=== PATIENT | female | born 1965 | race Caucasian/White ===

== ENCOUNTER → 2017-11-15 | Outpatient (CLI) | payer OTHER ==
[2017-11-18 15:07] LABS: HPV 16 Negative (Negative); HPV 18 Negative (Negative); HPV OTHER HR TYPES Negative (Negative)
== END ==
LOC: LAB 10:02 → LAB SHORT 10:02
PROVIDERS: Obstetrics & Gynecology
DX: Z01.419 Encounter for gynecological examination (general) (routine) without abnormal findings (principal)
CPT/HCPCS: 87624; G0123

== ENCOUNTER → 2019-10-31 | Outpatient (CLI) | payer OTHER ==
[2019-10-31 12:35] LABS: BASOPHILS ABSOLUTE AUTO 0.02 K/mm3 (0.00-0.23); BASOPHILS PERCENT AUTO 0 % (0-2); EOSINOPHILS ABSOLUTE AUTO 0.09 K/mm3 (0.00-0.68); EOSINOPHILS PERCENT AUTO 2 % (0-6); Hematocrit 40.3 % (33.0-51.0); Hemoglobin 14.6 g/dL (11.5-16.0); IMMATURE GRAN ABSOLUTE AUTO 0.02 K/mm3 (0.00-0.10); IMMATURE GRAN PERCENT AUTO 0 % (0-1); LYMPHOCYTES ABSOLUTE AUTO 1.02 K/mm3 (0.84-5.20); LYMPHOCYTES PERCENT AUTO 18 % (21-46); MONOCYTES PERCENT AUTO 7 % (4-13); Mean Corpuscular HGB 39.7 pg (26.0-34.0); Mean Corpuscular HGB Conc 36.2 g/dL (31.5-36.5); Mean Corpuscular Volume 110 fL (80-100); NEUTROPHILS ABSOLUTE AUTO 4.16 K/mm3 (1.96-9.15); NEUTROPHILS PERCENT AUTO 73 % (41-73); Platelet Count 171 K/mm3 (150-400); RDW Coefficient Variation 12.8 % (11.7-14.2); RDW Standard Deviation 51.1 fL (35.1-46.3); Red Blood Cell Count 3.68 M/mm3 (3.80-5.20); White Blood Cell Count 5.71 K/mm3 (4.00-11.30)
[2019-10-31 12:38] LABS: Anion Gap 9 mmol/L (6-16); Blood Urea Nitrogen 9 mg/dL (8-24); Bun/Creatinine Ratio 12.7 (12.0-20.0); CO2, Blood 28 mmol/L (21-32); Calcium, Blood 9.6 mg/dL (8.5-10.1); Chloride, Blood 99 mmol/L (98-108); Creatinine, Blood 0.71 mg/dL (0.40-1.00); Glomerular Filtration Rate >60 (60-); Glucose, Blood 113 mg/dL (70-99); Potassium, Blood 4.3 mmol/L (3.5-5.5); Sodium, Blood 136 mmol/L (136-145)
== END | disposition home or self-care (01) ==
LOC: LAB SHORT 12:25 → LAB EV 12:25
PROVIDERS: Physician Assistant
DX: D53.9 Nutritional anemia, unspecified (principal); I10 Essential (primary) hypertension
CPT/HCPCS: 80048; 82607; 82746; 84443; 84484; 85025

== ENCOUNTER → 2019-11-20 | Outpatient (CLI) | payer OTHER ==
[2019-11-20 18:21] LABS: Alanine Aminotransfer (ALT/SGP 57 U/L (12-78); Albumin, Blood 3.3 g/dL (3.4-5.0); Albumin/Globulin Ratio 0.8 (0.8-1.8); Alk Phos 102 U/L (50-136); Anion Gap 8 mmol/L (6-16); Aspartate Aminotrans (AST/SGOT 96 U/L (12-37); Bilirubin, Total 0.4 mg/dL (0.1-1.0); Blood Urea Nitrogen 7 mg/dL (8-24); CHOL/HDL RATIO 1.9; CO2, Blood 26 mmol/L (21-32); Calcium, Blood 8.5 mg/dL (8.5-10.1); Chloride, Blood 110 mmol/L (98-108); Cholesterol 182 mg/dL (50-200); Creatinine, Blood 0.44 mg/dL (0.40-1.00); Globulin, Blood 3.9 g/dL (2.2-4.0); Glomerular Filtration Rate >60 (60-); Glucose, Blood 81 mg/dL (70-99); HDL Cholesterol 98 mg/dL (>39); LDL/HDL RATIO 0.6; Low Density Lipoprotein Chol 63 mg/dL (0-110); Potassium, Blood 3.9 mmol/L (3.5-5.5); Sodium, Blood 144 mmol/L (136-145); Total Protein, Blood 7.2 g/dL (6.4-8.2); Triglycerides 105 mg/dL (30-160); Very Low Density Lipoprot Chol 21 mg/dL (6-32)
== END | disposition home or self-care (01) ==
LOC: LAB SHORT 16:02 → LAB 16:02
PROVIDERS: Nurse Practitioner Family
DX: Z00.00 Encounter for general adult medical examination without abnormal findings (principal)
CPT/HCPCS: 80053; 80061; 84443

== ENCOUNTER 2020-01-22 11:43 | Emergency (ER) | payer OTHER ==
[~2020-01-22] VITALS: Ht 162.6 cm; Wt 79.4 kg
[2020-01-22 12:54] LABS: BASOPHILS ABSOLUTE AUTO 0.02 K/mm3 (0.00-0.23); BASOPHILS PERCENT AUTO 0 % (0-2); EOSINOPHILS ABSOLUTE AUTO 0.13 K/mm3 (0.00-0.68); EOSINOPHILS PERCENT AUTO 2 % (0-6); Hematocrit 51.1 % (33.0-51.0); Hemoglobin 17.2 g/dL (11.5-16.0); IMMATURE GRAN ABSOLUTE AUTO 0.02 K/mm3 (0.00-0.10); IMMATURE GRAN PERCENT AUTO 0 % (0-1); LYMPHOCYTES ABSOLUTE AUTO 1.44 K/mm3 (0.84-5.20); LYMPHOCYTES PERCENT AUTO 23 % (21-46); MONOCYTES ABSOLUTE AUTO 0.34 K/mm3 (0.16-1.47); MONOCYTES PERCENT AUTO 5 % (4-13); Mean Corpuscular HGB 39.9 pg (26.0-34.0); Mean Corpuscular HGB Conc 33.7 g/dL (31.5-36.5); Mean Corpuscular Volume 119 fL (80-100); Mean Platelet Volume 9.5 fL (9.1-12.4); NEUTROPHILS ABSOLUTE AUTO 4.42 K/mm3 (1.96-9.15); NEUTROPHILS PERCENT AUTO 70 % (41-73); Platelet Count 123 K/mm3 (150-400); RDW Coefficient Variation 14.5 % (11.7-14.2); RDW Standard Deviation 64.2 fL (35.1-46.3); Red Blood Cell Count 4.31 M/mm3 (3.80-5.20); White Blood Cell Count 6.37 K/mm3 (4.00-11.30)
[2020-01-22] MEDS ORDERED: Prozac20 MG PO (13:02)
[2020-01-22] MEDS ORDERED: AMLO5 PO (13:02)
[2020-01-22] MEDS ORDERED: LISI5 PO (13:02)
[2020-01-22] MEDS ORDERED: Vitamin B-121000 MCG PO (13:03)
[2020-01-22] MEDS ORDERED: TRAZ50 PO (13:03)
[2020-01-22 13:04] LABS: International Normalized Ratio 1.03
[2020-01-22 13:13] LABS: Alanine Aminotransfer (ALT/SGP 19 U/L (12-78); Albumin, Blood 3.3 g/dL (3.4-5.0); Albumin/Globulin Ratio 0.8 (0.8-1.8); Alk Phos 169 U/L (50-136); Anion Gap 7 mmol/L (6-16); Aspartate Aminotrans (AST/SGOT 21 U/L (12-37); Bilirubin, Total 0.6 mg/dL (0.1-1.0); Blood Urea Nitrogen 8 mg/dL (8-24); CO2, Blood 27 mmol/L (21-32); Calcium, Blood 8.9 mg/dL (8.5-10.1); Chloride, Blood 106 mmol/L (98-108); Creatinine, Blood 0.57 mg/dL (0.40-1.00); Globulin, Blood 4.2 g/dL (2.2-4.0); Glomerular Filtration Rate >60 (60-); Glucose, Blood 94 mg/dL (70-99); Potassium, Blood 4.2 mmol/L (3.5-5.5); Sodium, Blood 140 mmol/L (136-145); Total Protein, Blood 7.5 g/dL (6.4-8.2)
[2020-01-22] MEDS ORDERED: XARELTO20 MG PO (13:42)
== END 2020-01-22 14:12 | disposition home or self-care (01) ==
LOC: ER 11:43
PROVIDERS: Emergency Medicine
DX: I82.411 Acute embolism and thrombosis of right femoral vein (principal); I82.431 Acute embolism and thrombosis of right popliteal vein; I82.441 Acute embolism and thrombosis of right tibial vein; I82.451 Acute embolism and thrombosis of right peroneal vein; I10 Essential (primary) hypertension; F41.9 Anxiety disorder, unspecified; F17.210 Nicotine dependence, cigarettes, uncomplicated; Z79.899 Other long term (current) drug therapy
CPT/HCPCS: 80053; 85025; 85610; 99283

== ENCOUNTER → 2020-10-20 | Outpatient (CLI) | payer OTHER ==
[~2020-10-20] MED LIST: AMLO5 PO; LISI5 PO; Prozac20 MG PO; TRAZ50 PO; Vitamin B-121000 MCG PO; XARELTO20 MG PO
[2020-10-21 14:11] LABS: HPV 16 Negative (Negative); HPV 18 Negative (Negative); HPV OTHER HR TYPES Negative (Negative)
== END ==
LOC: LAB SHORT 14:42 → LAB 14:42
PROVIDERS: Nurse Practitioner Family
DX: Z01.419 Encounter for gynecological examination (general) (routine) without abnormal findings (principal)
CPT/HCPCS: 87624; G0123

== ENCOUNTER → 2021-08-29 | Outpatient (CLI) | payer OTHER | END | disposition home or self-care (01) | LOC: LAB SHORT 09:03 | DX: N39.0 Urinary tract infection, site not specified (principal) | CPT/HCPCS: 87077; 87086; 87186 ==

== ENCOUNTER → 2022-08-07 | Outpatient (CLI) | payer OTHER ==
[2022-08-07 18:53] LABS: BASOPHILS ABSOLUTE AUTO 0.02 K/mm3 (0.00-0.23); BASOPHILS PERCENT AUTO 0 % (0-2); EOSINOPHILS ABSOLUTE AUTO 0.04 K/mm3 (0.00-0.68); EOSINOPHILS PERCENT AUTO 1 % (0-6); Hematocrit 39.6 % (33.0-51.0); Hemoglobin 14.1 g/dL (11.5-16.0); IMMATURE GRAN ABSOLUTE AUTO 0.01 K/mm3 (0.00-0.10); IMMATURE GRAN PERCENT AUTO 0 % (0-1); LYMPHOCYTES ABSOLUTE AUTO 1.54 K/mm3 (0.84-5.20); LYMPHOCYTES PERCENT AUTO 34 % (21-46); MONOCYTES ABSOLUTE AUTO 0.36 K/mm3 (0.16-1.47); MONOCYTES PERCENT AUTO 8 % (4-13); Mean Corpuscular HGB 42.1 pg (26.0-34.0); Mean Corpuscular HGB Conc 35.6 g/dL (31.5-36.5); Mean Corpuscular Volume 118 fL (80-100); NEUTROPHILS ABSOLUTE AUTO 2.59 K/mm3 (1.96-9.15); NEUTROPHILS PERCENT AUTO 57 % (41-73); Platelet Count 154 K/mm3 (150-400); RDW Coefficient Variation 12.6 % (11.7-14.2); RDW Standard Deviation 56.1 fL (35.1-46.3); Red Blood Cell Count 3.35 M/mm3 (3.80-5.20); White Blood Cell Count 4.56 K/mm3 (4.00-11.30)
[2022-08-07 20:02] LABS: LDL/HDL RATIO 0.8; Very Low Density Lipoprot Chol 20 mg/dL (6-32)
[2022-08-07 20:03] LABS: Alanine Aminotransfer (ALT/SGP 31 U/L (12-78); Albumin, Blood 3.3 g/dL (3.4-5.0); Albumin/Globulin Ratio 0.9 (0.8-1.8); Alk Phos 157 U/L (50-136); Anion Gap 9 mmol/L (6-16); Aspartate Aminotrans (AST/SGOT 47 U/L (12-37); Bilirubin, Total 0.6 mg/dL (0.1-1.0); Blood Urea Nitrogen 8 mg/dL (8-24); Bun/Creatinine Ratio 13.6 (12.0-20.0); CHOL/HDL RATIO 2.1; CO2, Blood 25 mmol/L (21-32); Calcium, Blood 8.8 mg/dL (8.5-10.1); Chloride, Blood 107 mmol/L (98-108); Cholesterol 152 mg/dL (50-200); Creatinine, Blood 0.59 mg/dL (0.40-1.00); Globulin, Blood 3.8 g/dL (2.2-4.0); Glomerular Filtration Rate 106 (60-); Glucose, Blood 88 mg/dL (70-99); HDL Cholesterol 74 mg/dL (>39); Low Density Lipoprotein Chol 58 mg/dL (0-110); Potassium, Blood 3.7 mmol/L (3.5-5.5); Sodium, Blood 141 mmol/L (136-145); Total Protein, Blood 7.1 g/dL (6.4-8.2); Triglycerides 102 mg/dL (30-160)
== END | disposition home or self-care (01) ==
LOC: LAB 11:54 → LAB SHORT 11:54
PROVIDERS: Nurse Practitioner Family
DX: Z13.6 Encounter for screening for cardiovascular disorders (principal); I10 Essential (primary) hypertension
CPT/HCPCS: 80053; 80061; 85025

== ENCOUNTER 2023-06-22 17:49 | Emergency (ER) | payer OTHER ==
[~2023-06-22] VITALS: Ht 162.6 cm; Wt 64.9 kg
[2023-06-22] MEDS ORDERED: Morphine Sulfate 4 MG/1 ML Injection IV ONE (20:20)
[2023-06-22] MEDS ORDERED: Ondansetron HCl 2 MG / ML 2ML Vial IV ONE (20:20)
[2023-06-22] MEDS ORDERED: METO50ER PO (20:33)
[2023-06-22] MEDS ORDERED: GABA100 PO (20:33)
[2023-06-22 20:37] LABS: BASOPHILS ABSOLUTE AUTO 0.03 K/mm3 (0.00-0.23); BASOPHILS PERCENT AUTO 1 % (0-2); EOSINOPHILS ABSOLUTE AUTO 0.19 K/mm3 (0.00-0.68); EOSINOPHILS PERCENT AUTO 3 % (0-6); Hematocrit 41.9 % (33.0-51.0); Hemoglobin 14.2 g/dL (11.5-16.0); IMMATURE GRAN ABSOLUTE AUTO 0.02 K/mm3 (0.00-0.10); IMMATURE GRAN PERCENT AUTO 0 % (0-1); LYMPHOCYTES ABSOLUTE AUTO 2.26 K/mm3 (0.84-5.20); LYMPHOCYTES PERCENT AUTO 37 % (21-46); MONOCYTES ABSOLUTE AUTO 0.42 K/mm3 (0.16-1.47); MONOCYTES PERCENT AUTO 7 % (4-13); Mean Corpuscular HGB 39.1 pg (26.0-34.0); Mean Corpuscular HGB Conc 33.9 g/dL (31.5-36.5); Mean Corpuscular Volume 115 fL (80-100); NEUTROPHILS ABSOLUTE AUTO 3.26 K/mm3 (1.96-9.15); NEUTROPHILS PERCENT AUTO 53 % (41-73); Platelet Count 159 K/mm3 (150-400); RDW Coefficient Variation 16.9 % (11.7-14.2); RDW Standard Deviation 73.3 fL (35.1-46.3); Red Blood Cell Count 3.63 M/mm3 (3.80-5.20); White Blood Cell Count 6.18 K/mm3 (4.00-11.30)
[2023-06-22 20:51] LABS: Bun/Creatinine Ratio 17.5 (12.0-20.0); Calcium, Blood 9.2 mg/dL (8.5-10.1); Creatinine, Blood 0.69 mg/dL (0.40-1.00); Potassium, Blood 4.1 mmol/L (3.5-5.5)
[2023-06-22 20:53] LABS: International Normalized Ratio 0.95; Prothrombin Time Results 10.2 Sec (9.7-11.5)
[2023-06-22 21:00] VITALS: BP 131/90
[2023-06-22] MEDS ORDERED: HYDROCODONE-AC1 EA11 PO (21:13)
[2023-06-22] MEDS ORDERED: RX Prepack 6 Tabs Oxycodone 5mg UD ONE (21:20)
[2023-07-03] MEDS ORDERED: LISI20 PO (13:27)
[2023-07-04] MEDS ORDERED: XARELTO20 MG PO (13:45)
== END 2023-06-22 21:41 | disposition home or self-care (01) ==
LOC: ER 17:49
PROVIDERS: Emergency Medicine
DX: I73.9 Peripheral vascular disease, unspecified (principal); Z79.899 Other long term (current) drug therapy; I10 Essential (primary) hypertension; F17.210 Nicotine dependence, cigarettes, uncomplicated
CPT/HCPCS: 73630; 80048; 85025; 85610; 85730; 96374; 96375; 99283-25; A9270; J2270; J2405

== ENCOUNTER 2023-06-26 14:05 | Observation (INO) | payer OTHER ==
[~2023-06-26] VITALS: Ht 162.6 cm; Wt 68.6 kg
[~2023-06-26 14:05] MED LIST changes: +GABA100 PO; +HYDROCODONE-AC1 EA11 PO; +METO50ER PO
[2023-06-26] MEDS ORDERED: HYDROmorphone HCl/Pf 1MG SYR IV ONE (14:25)
[2023-06-26] MEDS ORDERED: NS 1,000 ML IV SCH (14:25)
[2023-06-26] MEDS ORDERED: EpiNEPhrine 1 MG/1 ML 1ML Vial ONE (14:33)
[2023-06-26] MEDS ORDERED: Dexamethasone Sod Phos 10 MG/ML 1ML VIAL IV ONE (14:35)
[2023-06-26] MEDS ORDERED: EPINEPhrine HCl 1 MG/ML 1ML Amp IM ONE ×2 (14:35→15:10)
[2023-06-26] MEDS ORDERED: EpiNEPhrine 1 MG/1 ML 1ML Vial IM ONE ×2 (14:40→15:25)
[2023-06-26 15:02] LABS: BASOPHILS ABSOLUTE AUTO 0.03 K/mm3 (0.00-0.23); BASOPHILS PERCENT AUTO 0 % (0-2); EOSINOPHILS ABSOLUTE AUTO 0.13 K/mm3 (0.00-0.68); EOSINOPHILS PERCENT AUTO 2 % (0-6); Hemoglobin 17.2 g/dL (11.5-16.0); IMMATURE GRAN ABSOLUTE AUTO 0.02 K/mm3 (0.00-0.10); IMMATURE GRAN PERCENT AUTO 0 % (0-1); LYMPHOCYTES ABSOLUTE AUTO 2.26 K/mm3 (0.84-5.20); LYMPHOCYTES PERCENT AUTO 28 % (21-46); MONOCYTES ABSOLUTE AUTO 0.53 K/mm3 (0.16-1.47); MONOCYTES PERCENT AUTO 6 % (4-13); Mean Corpuscular HGB 39.4 pg (26.0-34.0); Mean Corpuscular HGB Conc 34.4 g/dL (31.5-36.5); Mean Corpuscular Volume 114 fL (80-100); Mean Platelet Volume 9.4 fL (9.1-12.4); NEUTROPHILS ABSOLUTE AUTO 5.26 K/mm3 (1.96-9.15); NEUTROPHILS PERCENT AUTO 64 % (41-73); Platelet Count 193 K/mm3 (150-400); RDW Coefficient Variation 16.4 % (11.7-14.2); RDW Standard Deviation 70.6 fL (35.1-46.3); Red Blood Cell Count 4.37 M/mm3 (3.80-5.20); White Blood Cell Count 8.23 K/mm3 (4.00-11.30)
[2023-06-26] MEDS ORDERED: Lactated Ringer's 1,000 ML IV ONE (15:10)
[2023-06-26 15:13] LABS: Albumin, Blood 2.9 g/dL (3.4-5.0); Albumin/Globulin Ratio 0.8 (0.8-1.8); Bilirubin, Total 0.2 mg/dL (0.1-1.0); Bun/Creatinine Ratio 16.8 (12.0-20.0); Calcium, Blood 9.5 mg/dL (8.5-10.1); Creatinine, Blood 0.83 mg/dL (0.40-1.00); Globulin, Blood 3.6 g/dL (2.2-4.0); Magnesium, Blood 1.9 mg/dL (1.6-2.4); Potassium, Blood 4.5 mmol/L (3.5-5.5); Total Protein, Blood 6.5 g/dL (6.4-8.2)
[2023-06-26] MEDS ORDERED: ZESTRIL40 M1 PO (15:48)
[2023-06-26] MEDS ORDERED: Heparin Sodium,Porcine/0.5 NS 500 ML IV SCH (16:50)
[2023-06-26] MEDS ORDERED: Heparin Sodium 5000 Units/ML 1ML MDV IV ONE (16:50)
[2023-06-26 17:21] LABS: International Normalized Ratio 1.16; Prothrombin Time Results 12.3 Sec (9.7-11.5)
[2023-06-26] MEDS ORDERED: Famotidine 10 MG/ML 2ML Vial IV ONE (18:45)
[2023-06-26] MEDS ORDERED: Lactated Ringer's 1,000 ML IV SCH (18:45)
[2023-06-26] MEDS ORDERED: Ondansetron HCl 2 MG / ML 2ML Vial IV PRN (18:45)
[2023-06-26] MEDS ORDERED: Acetaminophen 325 MG TABLET PO PRN (18:45)
[2023-06-26] MEDS ORDERED: Albuterol 2.5 MG/3 ML VIAL INH PRN (18:50)
[2023-06-26] MEDS ORDERED: Albuterol 2.5 MG/3 ML VIAL INH ONE (19:00)
[2023-06-26] MEDS ORDERED: DiphenhydrAMINE HCl 50 MG/ML 1ML Vial IV ONE (19:00)
[2023-06-26 19:52] LABS: U Amphetamine Screen Not Detected; U Barbituate Screen Not Detected; U Benzodiazapine Screen Not Detected; U Buprenorphine Screen Not Detected; U Cannabinoids Screen DETECTED; U Cocaine Screen Not Detected; U Methadone Screen Not Detected; U Methamphetamine Screen Not Detected; U Opiates Screen DETECTED; U Oxycodone Screen Not Detected; U Phencyclidine Screen Not Detected
--- NOTE | 2023-06-26 20:54 | NUR ---
ADMISSION ASSESSMENT: PT ARRIVES TO PCU ROOM 8 FROM ER FOR C/O HYPOTENSION. SHE HAS A HX OF HTN, DVT, AND CERVIAL CX IN WHICH SHE IS IN REMISSION FOR. SHE WAS ABLE TO TRANSFER FROM [facility] TO BED W/O ASSISTANCE, IS AXO X 4. NO NEURO DEFICITS. SHE CURRENLTY DENIES ANY C/P AND PRESSURES ARE STABLE AFTER RECEIVING FLUIDS IN ED. SHE REPORTS SHE WAS STARTED ON XARELTO EARLIER TODAY AND HAD IMAGING DONE FOR CONCERNS OF DISCOLORED TOES. FOUND TO HAVE ARTERIAL STENOSIS W/ INSUFFICIENCY TO RLE. SHE DENIES SOB BUT HAS BEEN PLACED ON 4L N/C WITH SATS AT 97%. NO O2 AT HOME. CURRENT 1PPD SMOKER, LUNG SOUNDS COARSE AND WHEEZY. BREATHING TX ORDERED. SHE DENIES ANY N/V/D. NO EDEMA BUT JONES SHAVE DISCOLORATION TO R GREAT TOE AND 3RD TOE. 22G TO LINDSEY AND 20G TO RAC. REQUESTING MEDICATION FOR NEUROPATIC FOOTPAIN. PLAN TO MEDICATE PER EMAR. PT ORIENTED TO ROOM AND CALL LIGHT IN REACH.
[2023-06-26] MEDS ORDERED: Gabapentin 100 MG Cap PO SCH (21:00)
[2023-06-26] MEDS ORDERED: Famotidine 20 MG Tab PO SCH (21:00)
[2023-06-26] MEDS ORDERED: HYDROcodone 5-APAP 325 TAB PO PRN (22:00)
[2023-06-26 23:10] VITALS: BP 97/57
[2023-06-27 03:22] VITALS: BP 143/79
[2023-06-27 04:23] LABS: BASOPHILS PERCENT AUTO 0 % (0-2); EOSINOPHILS PERCENT AUTO 0 % (0-6); Hematocrit 38.8 % (33.0-51.0); Hemoglobin 12.9 g/dL (11.5-16.0); IMMATURE GRAN ABSOLUTE AUTO 0.02 K/mm3 (0.00-0.10); IMMATURE GRAN PERCENT AUTO 0 % (0-1); LYMPHOCYTES ABSOLUTE AUTO 0.66 K/mm3 (0.84-5.20); LYMPHOCYTES PERCENT AUTO 10 % (21-46); MONOCYTES ABSOLUTE AUTO 0.28 K/mm3 (0.16-1.47); MONOCYTES PERCENT AUTO 4 % (4-13); Mean Corpuscular HGB 38.3 pg (26.0-34.0); Mean Corpuscular HGB Conc 33.2 g/dL (31.5-36.5); Mean Corpuscular Volume 115 fL (80-100); Mean Platelet Volume 9.3 fL (9.1-12.4); NEUTROPHILS ABSOLUTE AUTO 5.37 K/mm3 (1.96-9.15); NEUTROPHILS PERCENT AUTO 85 % (41-73); Platelet Count 163 K/mm3 (150-400); RDW Coefficient Variation 15.9 % (11.7-14.2); RDW Standard Deviation 68.5 fL (35.1-46.3); Red Blood Cell Count 3.37 M/mm3 (3.80-5.20); White Blood Cell Count 6.33 K/mm3 (4.00-11.30)
[2023-06-27 04:48] LABS: Bun/Creatinine Ratio 20.4 (12.0-20.0); Creatinine, Blood 0.64 mg/dL (0.40-1.00); Potassium, Blood 4.5 mmol/L (3.5-5.5)
--- NOTE | 2023-06-27 05:45 | NUR ---
PCU ASSOCIATE [employer]ACLE RETAIL SUMMARY: PT SLEPT SOUDLY T/O THE NIGHT AND HAD NO ACUTE CHANGES IN CONDITION. SHE REMAINED AXO X 4 AND HAS BEEN NPO SINCE 0000. SHE DENIED ANY C/P OR SOB HOWEVER SHE WAS PLACED ON 4L N/C DUE TO DESATS ON R/A. OCCASIONALLY SHE WOULD HAVE N/C SLIP OUT OF HER NARES IN WHCIH SHE WOULD DESAT DOWN TO 87%. BACK TO 97% WHEN REPLACED. SHE DENIED N/V/D. SHE WILL HAVE A CONSULT WITH IR TODAY DUE TO A 90% OCCULUSION AND ARTERIAL STENOSIS. THE CONCERN FOR HYPOTENSION WAS MINIMAL AND PT HAD NO READINGS WITH MAP BELOW 65. MAINTAINANCE FLUIDS RUNNING. CALL LIGHT IN REACH AND VSS AT THIS TIME. WILL CONTINUE TO COMPLETE CARE UNTIL REPORT TO DAY SHIFT RN.
[2023-06-27] MEDS ORDERED: Heparin Sodium,Porcine/0.5 NS 500 ML IV SCH (06:55)
[2023-06-27 07:20] VITALS: BP 124/71
[2023-06-27] MEDS ORDERED: Loratadine 10 MG Tab PO SCH (09:00)
[2023-06-27] MEDS ORDERED: Atorvastatin 40 MG Tab PO SCH (09:00)
[2023-06-27] MEDS ORDERED: PredniSONE 20 MG Tab PO SCH (09:00)
[2023-06-27] MEDS ORDERED: Cyanocobalamin 500 MCG Tab PO SCH (09:00)
--- NOTE | 2023-06-27 10:54 | NUR ---
DR. MANUEL CAME TO THE BEDSIDE AND EVALUATED THE PT W/ A DOPPLER. HE STATES SHE HAS ADAQUET BLOOD FLOW AND HE WILL SEE HER IN A FEW WEEKS TO DO AN OUTPT REVASC. DR. CHIANG NOTIFIED AND SAID THE PT IS GOOD TO DISCHARGE TODAY. A REGULAR DIET WAS RESUMED.
[2023-06-27 11:35] VITALS: BP 123/77
[2023-06-27] MEDS ORDERED: ATOR80 PO (11:54)
[2023-06-27] MEDS ORDERED: CLOP75 PO (11:55)
[2023-06-27] MEDS ORDERED: ASPI81CH PO (11:55)
[2023-06-27] MEDS ORDERED: IRBE150 PO (11:56)
--- NOTE | 2023-06-27 12:28 | NUR ---
D/C SUMMARY PT IS A&OX4, AND VITAL SIGNS REMAIN STABLE. THE PT IS ON RA W/ SP02 >90%. I WENT OVER DISCHARGE INSTRUCTION WITH THE PT/SPOUSE AND ANSWERED ALL OF THIER QUESTIONS. SHE WILL F/U WITH HER PRIMARY NEXT WEEK AND DR. MANUEL IN A FEW WEEKS. HER MEDICATIONS HAVE BEEN FAXED TO [facility]. NO FURTHER NOTES FROM THIS NURSE AT TIME.
[2023-07-03] MEDS ORDERED: LISI20 PO (13:27)
[2023-07-04] MEDS ORDERED: XARELTO20 MG PO (13:45)
== END 2023-06-27 12:44 | disposition home or self-care (01) ==
LOC: ER 14:05 → PCU 14:06
PROVIDERS: Nurse Practitioner Acute Care; Student in an Organized Health Care Education/Training Program; ADMIT Internal Medicine
DX: I75.021 Atheroembolism of right lower extremity (principal); I95.9 Hypotension, unspecified; I10 Essential (primary) hypertension; J44.9 Chronic obstructive pulmonary disease, unspecified; F17.210 Nicotine dependence, cigarettes, uncomplicated; Z79.01 Long term (current) use of anticoagulants; Z79.899 Other long term (current) drug therapy; I73.9 Peripheral vascular disease, unspecified; I70.8 Atherosclerosis of other arteries; K55.069 Acute infarction of intestine, part and extent unspecified
CPT/HCPCS: 36415; 71045; 75635; 80048; 80053; 83605; 83735; 84484; 85025; 85520; 85610; 85730; 93005; 93010; 94640; 94664; 94762; 96361; 96366; 96372-59; 96374; 96375; 99285-25; A9270; G0378; J0171; J1100; J1200; J1644; J7030; J7120; J7512; Q9967

== ENCOUNTER 2023-07-15 07:09 | Day surgery (SDC) | payer OTHER | END 2023-07-15 22:47 | disposition home or self-care (01) | LOC: WOUND 07:09 | DX: L97.512 Non-pressure chronic ulcer of other part of right foot with fat layer exposed (principal); G62.9 Polyneuropathy, unspecified; I10 Essential (primary) hypertension; I73.9 Peripheral vascular disease, unspecified; I75.021 Atheroembolism of right lower extremity; G60.9 Hereditary and idiopathic neuropathy, unspecified ==

== ENCOUNTER 2023-10-24 07:14 | Day surgery (SDC) | payer OTHER ==
[~2023-10-24] VITALS: Ht 162.6 cm; Wt 67.6 kg
[2023-10-24] VITALS (11 sets, daily range): BP systolic 118–150; BP diastolic 72–92
[~2023-10-24 07:14] MED LIST changes: +ASPI81CH PO; +ATOR80 PO; +CLOP75 PO; +Hydroxyzine HCl25 MG PO; +IRBE150 PO; +LISI20 PO; +Nicoderm Cq1 EAC1 TOP; +ZESTRIL40 M1 PO
[2023-10-24] MEDS ORDERED: NS 1,000 ML IV ONE ×2 (07:24→08:31)
[2023-10-24] MEDS ORDERED: Heparin Sodium 1000 Units/ML 10ML MDV ONE (07:24)
[2023-10-24] MEDS ORDERED: NS 500 ML IV ONE (07:24)
[2023-10-24] MEDS ORDERED: Nitroglycerin 2 MG/20 ML BTL ONE (07:24)
[2023-10-24] MEDS ORDERED: Midazolam HCl 1MG / ML 2ML Vial ONE ×2 (08:31→09:16)
[2023-10-24] MEDS ORDERED: FentaNYL Citrate 50 MCG/ML 2 ML Injection ONE ×2 (08:31→09:37)
[2023-10-24] MEDS ORDERED: Alteplase Recombinant 2 MG / Vial ONE ×2 (09:44→09:59)
[2023-10-24] MEDS ORDERED: Clopidogrel Bisulfate 300 MG Cap ONE (10:07)
--- NOTE | 2023-10-24 10:33 | NUR ---
pt back to recovery from lab. pt a&0. groin site soft and non-tender per pt. no bleeding noted. pt given water and coffee per request.
--- NOTE | 2023-10-24 10:49 | NUR ---
bilat pt pulses founs via doppler by chery maki.
--- NOTE | 2023-10-24 11:21 | NUR ---
groin site soft and non-tender per pt. no bleeding noted. bed sat to 30 degrees. pt reading book.
--- NOTE | 2023-10-24 11:34 | NUR ---
pt given food.
--- NOTE | 2023-10-24 13:01 | NUR ---
groins site soft and non-tender per pt. no bleeding noted. pt ambulated to restroom w/o assistance. pt given dc instructions and verbalized understanding. iv out. pt changed. pt taken to [facility] via [facility] [place] to give pt ride home.
== END 2023-10-24 14:13 | disposition home or self-care (01) ==
LOC: MHTC 07:14
DX: I70.222 Atherosclerosis of native arteries of extremities with rest pain, left leg (principal); G62.9 Polyneuropathy, unspecified; I10 Essential (primary) hypertension; Z87.891 Personal history of nicotine dependence; Z79.899 Other long term (current) drug therapy
CPT/HCPCS: 36200; 37211; 37224; 75716; 75774; 76937; 99152; 99153; A9270; C1725; C1760; C1769; C1887; C1894; C2623; J1644; J2250; J2997; J3010; J7030; J7050; Q9967